=== PATIENT | male | born 1990 | race Two or more races ===

== ENCOUNTER 2024-09-22 15:33 | Emergency (ER) | payer OTHER ==
[~2024-09-22] VITALS: Ht 170.2 cm; Wt 84.0 kg
[2024-09-22 15:59] VITALS: RESP 18; O2SAT 98
[2024-09-22] MEDS ORDERED: CYCL-837 PO (18:36)
[2024-09-22] MEDS ORDERED: IBUP-1456 PO (18:36)
--- NOTE | 2024-09-22 18:37 | ED.PDOC ---
Back pain HPI HPI Comments 33 year old male presents to ER with complaints of back pain x 1 week. Patient with PMH of chronic lumbar back pain reports he started experiencing worsening lumbar back pain 1 week ago. Denies any trauma/falls/heavy lifting. He rates his current pain a 8/10 to lower lumbar spine with radiation down posterior bilateral legs. Notes he has been taking tylenol for his pain without relief and states his pain is worse with movement and better with rest. Denies fever, nigh sweats, body aches, chills, n/v, numbness/tingling, shortness of breath, chest pain, abdominal/pelvic pain, changes in urination/bm or any further symptoms/complaints Chief Complaint: Back Pain Time Seen by MD: 18:09 Primary Care Provider: NONE Reviewed Notes: Nurses Notes, Medications, Allergies Allergies: Coded Allergies: NO KNOWN ALLERGIES (Unverified , 09/22/24) Home Meds Active Scripts Ibuprofen (Ibuprofen) 800 Mg Tab, 1 TAB PO TID PRN, #30 TAB 0 Refills Prov:KO SOTO 09/22/24 Cyclobenzaprine Hcl (Cyclobenzaprine Hcl) 5 Mg Tab, 1 TAB PO QHSP, #14 TAB 0 Refills Prov:KO SOTO 09/22/24 Information Source: Patient Mode of Arrival: Ambulatory Past Medical History Past Medical History (Other): Chronic lumbar back pain Surgical History: Denies all surgeries Family History Family History: Unknown Social History Smoker: Non-Smoker Alcohol: Denies ETOH Use Drugs: Denies Drug Use Lives In: Home Constitutional: denies: chills, diaphoresis, fatigue, fever, malaise, sweats, weakness, others EENTM: denies: blurred vision, double vision, ear bleeding, ear discharge, ear drainage, ear pain, ear ringing, eye pain, eye redness, hearing loss, mouth pain, mouth swelling, nasal discharge, nose bleeding, nose congestion, nose pain, photophobia, tearing, throat pain, throat swelling, voice changes, others Respiratory: denies: cough, hemoptysis, orthopnea, SOB at rest, shortness of breath, SOB with excertion, stridor, wheezing, others Cardiovascular: denies: chest pain, dizzy spells, diaphoresis, Dyspnea on exertion, edema, irregular heart beat, left arm pain, lightheadedness, palpitations, PND, syncope, others Gastrointestinal: denies: abdomen distended, abdominal pain, blood streaked bowels, constipated, diarrhea, dysphagia, difficulty swallowing, hematemesis, melena, nausea, poor appetite, poor fluid intake, rectal bleeding, rectal pain, vomiting, others Genitourinary: denies: burning, dysuria, flank pain, frequency, hematuria, incontinence, penile discharge, penile sore, pain, testicle pain, testicle swelling, urgency, others Neurological: denies: dizziness, fainting, headache, left sided numbness, left sided weakness, numbness, paresthesia, pre-existing deficit, right sided numbness, right sided weakness, seizure, speech problems, tingling, tremors, weakness, others Musculoskeletal: reports: others (As stated in HPI) Integumetry: denies: bruises, change in color, change in hair/nails, dryness, laceration, lesions, lumps, rash, wounds, others Allergic/Immunocompromised: denies: Difficulty Healing, Frequent Infections, Hives, Itching, others Hematologic/Lymphatic: denies: anemia, blood clots, easy bleeding, easy bruising, swollen glands, others Endocrine: denies: excessive hunger, excessive sweating, excessive thirst, excessive urination, flushing, intolerance to cold, intolerance to heat, unexplained weight gain, unexplained weight loss, others Psychiatric: denies: anxiety, bipolar disorder, depression, hopeless, panic disorder, schizophrenia, sleepless, suicidal, others Physical Exam General Appearance: No Apparent Distress HEENT: PERRL/EOMI Neck: Full Range of Motion, Non-Tender, Normal Respiratory: Chest Non-Tender, Lungs Clear, No Accessory Muscle Use, No Respiratory Distress, Normal Breath Sounds Cardiovascular: No Murmur, No Gallop, Regular Rate/Rhythm Breast Exam: Deferred Gastrointestinal: Non Tender, No Pulsatile Mass, Soft Genitalia: Deferred Pelvic: Deferred Rectal: Deferred Extremities: No calf tenderness, Normal capillary refill, Normal range of motion Musculoskeletal : Extremity Location: Back (TTP centralized to bilateral lower lumbar paraspinals noted. No skin changes appreciated. Gait slowed due to pain localized to bilateral lower lumbar paraspinals) Neurologic: Alert, heel shaver II-XII nml as Tested, No Motor Deficits, Normal Affect, Normal Mood, No Sensory Deficits Cerebellar Function: Normal Reflexes: Normal Skin: Dry, Normal Color, Warm Peripheral Pulses: 2+ femoral (R), 2+ femoral (L), 2+ dorsalis pedis (R), 2+ do rsalis pedis (L), 2+ Radial (R), 2+ Radial (L), 2+ Brachial (R), 2+ Brachial (L) Lymphatic: No Adenopathy Was a procedure done? Was a procedure done?: No Sedation Sedation?: No Back Pain Differential Dx Differential Diagnosis: AAA, Fracture, Urolithiasis X-Ray, Labs, Meds, VS Vital Signs Date Time Temp Pulse Resp B/P (MAP) Pulse Ox O2 Delivery O2 Flow Rate FiO2 09/22/24 18:58 98.5 73 18 128/86 (100) 100 98.5 09/22/24 16:23 98.1 77 20 144/76 (98) 99 98.1 09/22/24 15:59 18 98 Room Air* 0 21 09/22/24 15:44 98.0 77 18 132/56 (81) 100 Current Medications Medications (Trade) Dose Ordered Sig/Asim Route Start Time Stop Time Status Last Admin Ketorolac Tromethamine (Toradol Injection) 60 mg ONCE ONCE IM 09/22/24 18:45 09/22/24 18:46 DC 09/22/24 18:53 PATIENT: MAGO LEWIST: [id number]: [id number] : 1990 LOC: ER ROOM / BED: / AGE / SEX: 33 / M ADM STATUS: REG ER SERVICE [id number] ORDERING PHYSICIAN: KO SOTO PROCEDURE(s): LUMB2 - LUMBAR SPINE 3 VIEW REASON: lumbar back pain ORDER NUMBER(s): [id number], ACCESSION NUMBER(s): [id number] EXAM: XY LUMBAR SPINE 3 VIEW INDICATION: lumbar back pain COMPARISON: None TECHNIQUE: 2 views of the lumbar spine were obtained. Findings: There is no evidence of an acute fracture, spondylolysis, or spondylolisthesis. The vertebral body heights and disc spaces are well-maintained. No blastic or lytic lesions are appreciated. No radiopaque foreign bodies. No superficial soft tissue abnormalities. Impression: 1. No acute osseous abnormality. ATED BY: JEANETTE ETIENNE DO DICTATED DATE/TIME: 09/22/241941 SIGNED BY: JEANETTE ETIENNE DO SIGNED DATE/TIME: 09/22/241941 CC: Lumbar x-ray reviewed Toradol 60 mg IM ordered Patient neurovascularly intact and reported improvement in symptoms prior to discharge Advised on rest/no strenuous activity Advised to f/u with PCP in 1-2 days Patient verbalized understanding and agreeable with current plan of care Advised to return to ER immediately if symptoms worsen Images Reviewed?: Images reviewed and evaluated by me Time of 1ST Reevaluation: 18:12 Reevaluation 1ST: N/A Time of 2ND Reevaluation: 19:50 Reevaluation 2ND: Improved Patient Education/Counseling: Diagnosis, Treatment, Prognosis, Need For Follow Up Family Education/Counseling: No Family Present Departure 1 Departure Time of Disposition: 19:52 Impression: Primary Impression: Lumbar strain Qualified Codes: S39.012A - Strain of muscle, fascia and tendon of lower back, initial encounter Disposition: HOME / SELF CARE / HOMELESS Condition: Stable e-Prescriptions Ibuprofen (Ibuprofen) 800 Mg Tab 1 TAB PO TID PRN, #30 TAB 0 Refills Prov: KO SOTO 09/22/24 Cyclobenzaprine Hcl (Cyclobenzaprine Hcl) 5 Mg Tab 1 TAB PO QHSP, #14 TAB 0 Refills Prov: KO SOTO 09/22/24 Discharged With: Self Critical Care Note Critical Care Time?: No Stability Stability form required: No Heart Score Heart Score: Heart Score Response (Comments) Value History N/A 0 EKG N/A 0 Age N/A 0 Risk Factors N/A 0 Troponin N/A 0 Total 0 KO SOTO Sep 22, 2024 18:37
[2024-09-22] MEDS: KETOROLAC TROMETH 60MG/2ML VIAL IM ONE (18:53)
[2024-09-22 18:58] VITALS: BP 128/86; PULSE 73; RESP 18; TEMP 98.5; O2SAT 100
--- NOTE | 2024-09-22 19:45 | DVH ---
EXAM: XY LUMBAR SPINE 3 VIEW INDICATION: lumbar back pain COMPARISON: None TECHNIQUE: 2 views of the lumbar spine were obtained. Findings: There is no evidence of an acute fracture, spondylolysis, or spondylolisthesis. The vertebral body heights and disc spaces are well-maintained. No blastic or lytic lesions are appreciated. No radiopaque foreign bodies. No superficial soft tissue abnormalities. Impression: 1. No acute osseous abnormality.
== END 2024-09-22 19:55 | disposition home or self-care (01) ==
LOC: ER 15:41
DX: S39.012A Strain of muscle, fascia and tendon of lower back, initial encounter (principal); Z79.899 Other long term (current) drug therapy; X58.XXXA Exposure to other specified factors, initial encounter; Y93.89 Activity, other specified; Y92.89 Other specified places as the place of occurrence of the external cause; Y99.8 Other external cause status
CPT/HCPCS: 72100; 96372; 99283; J1885